=== PATIENT | female | born 1980 | race Caucasian/White ===

== ENCOUNTER 2017-09-14 19:29 | Emergency (ER) | payer BC, OTHER ==
--- NOTE | 2017-09-14 20:14 | RAD ---
TWO VIEWS RIGHT FOREARM: 09/14/17 HISTORY: Trauma. Pain. FINDINGS: There is a comminuted distal radius fracture. Mild angulation. Displaced ulnar styloid fracture is noted. IMPRESSION: Radius and ulna fractures as described above. POS: [facility]
--- NOTE | 2017-09-14 20:15 | RAD ---
TWO VIEWS RIGHT WRIST: 09/14/17 HISTORY: Patient fell from the bottom steps of a ladder today. Pain. FINDINGS: Displaced ulnar styloid fracture. Comminuted distal radius fracture with mild angulation. Visualized carpal bones do not demonstrate fracture. IMPRESSION: Distal radius and ulnar fracture. POS: [facility]
[2017-09-14] MEDS ORDERED: PROPOFOL 20 ML ONE (20:32)
--- NOTE | 2017-09-14 21:08 | RAD ---
TWO VIEWS OF THE RIGHT WRIST: 09/14/17 HISTORY: Fracture. Status post reduction. COMPARISON: 05/17/17. FINDINGS: Interval placement of a fiberglass splint. Distal radius fracture and ulnar styloid fracture redemons trated. Improved alignment. IMPRESSION: Improved alignment. POS: [facility]
[2017-09-14] MEDS ORDERED: Ketorolac Tromethamine 30 MG/ML VIAL ONE (21:13)
== END 2017-09-14 21:23 | disposition home or self-care (01) ==
LOC: ERS 19:29
DX: S52.501A Unspecified fracture of the lower end of right radius, initial encounter for closed fracture (principal); S52.601A Unspecified fracture of lower end of right ulna, initial encounter for closed fracture; F17.210 Nicotine dependence, cigarettes, uncomplicated; W01.0XXA Fall on same level from slipping, tripping and stumbling without subsequent striking against object, initial encounter
CPT/HCPCS: 24655; 96374; 99001; 99152; J1885; J2704

== ENCOUNTER 2018-01-14 01:45 | Emergency (ER) | payer BC ==
[2018-01-14] MEDS ORDERED: HYDROcodone/Acetaminophen 5/325 mg Tablet ONE (02:53)
== END 2018-01-14 02:58 | disposition home or self-care (01) ==
LOC: ERS 01:45
DX: M54.2 Cervicalgia (principal); M25.511 Pain in right shoulder; M25.512 Pain in left shoulder; F17.210 Nicotine dependence, cigarettes, uncomplicated
CPT/HCPCS: 99406